=== PATIENT | female | born 1970 | race Caucasian/White ===

== ENCOUNTER 2024-06-18 11:43 | Emergency (ER) | payer MEDICAID ==
[~2024-06-18] VITALS: Ht 180.3 cm; Wt 65.5 kg
[2024-06-18 12:26] LABS: BILIRUBIN,URINE NEGATIVE (Neg); CLARITY,URINE CLEAR (Clear); COLOR,URINE YELLOW (Yellow); GLUCOSE, URINE NEGATIVE (Neg); KETONES,URINE NEGATIVE (Neg); LEUKOCYTE ESTERASE ,URINE NEGATIVE (Neg); NITRITES, URINE NEGATIVE (Neg); OCCULT BLOOD,URINE TRACE-INTACT (Neg); PROTEIN,URINE NEGATIVE (Neg); UROBILINOGEN,URINE 0.2 E.U/dL (0.2-1.0)
[2024-06-18 12:31] LABS: URINE HCG NEGATIVE (NEG)
[2024-06-18 12:42] LABS: UA COLLECTION TYPE CLN CATCH MIDSTREAM
[2024-06-18 12:44] LABS: BACTERIA,URINE NONE SEEN /HPF (Neg); SQUAMOUS EPITHELIAL CELL,UR FEW /LPF (FEW); WBC,URINE 0-4 /HPF (0-4)
[2024-06-18 13:40] LABS: BASOPHILS # (AUTO) 0.1 X10'3 (0-0.2); BASOPHILS % (AUTO) 1.1 % (0-1); EOSINOPHILS # (AUTO) 0.1 X10'3 (0-0.9); EOSINOPHILS % (AUTO) 2.5 % (0-6); HEMATOCRIT 40.1 % (35.0-45.0); HEMOGLOBIN 13.4 g/dl (12.0-16.0); LYMPHOCYTES # (AUTO) 1.3 X10'3 (1.1-4.8); LYMPHOCYTES % (AUTO) 22.6 % (21-51); MEAN CORPUSCULAR HEMOGLOBIN 29.8 PG (27.0-31.0); MEAN CORPUSCULAR HGB CONC 33.4 g/dL (33.0-36.5); MEAN PLATELET VOLUME 10.5 FL (7.4-10.4); MONOCYTES # (AUTO) 0.5 X10'3 (0-0.9); MONOCYTES % (AUTO) 8.9 % (2-12); NEUTROPHILS # (AUTO) 3.8 X10'3 (1.8-7.7); NEUTROPHILS % (AUTO) 64.9 % (42-75); PLATELET COUNT 236 X10'3 (140-440); RED BLOOD COUNT 4.51 X10'6 (4.20-5.60); WHITE BLOOD COUNT 5.8 X10'3 (4.5-11.0)
[2024-06-18 13:46] LABS: ALANINE AMINOTRANSFERASE 20 U/L (12-78); ALBUMIN 3.2 G/DL (3.4-5.0); ALKALINE PHOSPHATASE 59 IU/L (46-116); ANION GAP 4 (8-16); ASPARTATE AMINO TRANSFERASE 18 U/L (10-37); BILIRUBIN,TOTAL 0.5 MG/DL (0.1-1.0); BLOOD UREA NITROGEN 18 MG/DL (7-18); BUN/CREATININE RATIO 20.2 (10.0-20.0); CALCIUM 8.1 MG/DL (8.5-10.1); CHLORIDE 104 MMOL/L (99-107); CREATININE 0.89 MG/DL (0.40-0.90); GLUCOSE 145 MG/DL (70-104); LIPASE 35 U/L (16-77); POTASSIUM 3.6 MMOL/L (3.5-5.1); SODIUM 139 MMOL/L (135-145); TOTAL CARBON DIOXIDE 30.6 MMOL/L (24-32); TOTAL PROTEIN 6.5 G/DL (6.4-8.2); eCRCL 75 ML/MIN; eGFR 66 ML/MIN
[2024-06-18 14:20] VITALS: BP 110/61; PULSE 68; RESP 16; TEMP 97.9; O2SAT 97
== END 2024-06-18 14:25 | disposition home or self-care (01) ==
LOC: ER 11:44
DX: R19.7 Diarrhea, unspecified (principal)
CPT/HCPCS: 80053; 81001; 81025; 83690; 85025; 99283

== ENCOUNTER 2024-07-16 10:50 | Emergency (ER) | payer MEDICAID ==
[~2024-07-16] VITALS: Ht 180.3 cm; Wt 67.0 kg
[2024-07-16] MEDS ORDERED: AMOX500C2 PO (11:18)
[2024-07-16] MEDS ORDERED: CIPR10DR RIGHT EAR (11:18)
[2024-07-16 11:54] VITALS: BP 130/83; PULSE 76; RESP 16; TEMP 99; O2SAT 98
== END 2024-07-16 11:56 | disposition home or self-care (01) ==
LOC: ER 10:51
DX: H60.93 Unspecified otitis externa, bilateral (principal); Z88.8 Allergy status to other drugs, medicaments and biological substances; Z79.2 Long term (current) use of antibiotics
CPT/HCPCS: 99283

== ENCOUNTER 2024-07-22 07:54 | Emergency (ER) | payer MEDICAID ==
[~2024-07-22] VITALS: Ht 180.3 cm; Wt 67.5 kg
[~2024-07-22 07:54] MED LIST: AMOX500C2 PO; CIPR10DR RIGHT EAR
[2024-07-22 07:56] VITALS: BP 123/76; PULSE 74; RESP 16; TEMP 98.4; O2SAT 99
[2024-07-22] MEDS ORDERED: SODI45SP5 BOTHNARES (09:15)
[2024-07-22] MEDS ORDERED: FLUT16SP2 BOTHNARES (09:15)
[2024-07-22] MEDS ORDERED: CEFD300C3 PO (09:15)
[2024-07-22] MEDS ORDERED: IBUP-1985 PO (09:15)
== END 2024-07-22 09:32 | disposition home or self-care (01) ==
LOC: ER 07:55
DX: M25.561 Pain in right knee (principal); H66.91 Otitis media, unspecified, right ear; Z88.1 Allergy status to other antibiotic agents; Z88.6 Allergy status to analgesic agent
CPT/HCPCS: 99283; A6449

== ENCOUNTER 2024-08-09 10:38 | Emergency (ER) | payer MEDICAID ==
[~2024-08-09] VITALS: Ht 180.3 cm; Wt 68.5 kg
[~2024-08-09 10:38] MED LIST changes: -AMOX500C2 PO; -CIPR10DR RIGHT EAR; +FLUT16SP2 BOTHNARES; +IBUP-1985 PO; +SODI45SP5 BOTHNARES
[2024-08-09 15:05] LABS: BILIRUBIN,URINE NEGATIVE (Neg); CLARITY,URINE CLEAR (Clear); COLOR,URINE YELLOW (Yellow); GLUCOSE, URINE NEGATIVE (Neg); KETONES,URINE NEGATIVE (Neg); LEUKOCYTE ESTERASE ,URINE NEGATIVE (Neg); NITRITES, URINE NEGATIVE (Neg); OCCULT BLOOD,URINE TRACE-INTACT (Neg); PROTEIN,URINE NEGATIVE (Neg); UROBILINOGEN,URINE 0.2 E.U/dL (0.2-1.0)
[2024-08-09 15:10] LABS: UA COLLECTION TYPE CLN CATCH MIDSTREAM
[2024-08-09 15:11] LABS: BACTERIA,URINE NONE SEEN /HPF (Neg); RBC,URINE 0-2 /HPF (0-2); SQUAMOUS EPITHELIAL CELL,UR FEW /LPF (FEW); WBC,URINE 0-4 /HPF (0-4)
[2024-08-09 15:18] LABS: BASOPHILS # (AUTO) 0.1 X10'3 (0-0.2); EOSINOPHILS # (AUTO) 0.1 X10'3 (0-0.9); EOSINOPHILS % (AUTO) 2.3 % (0-6); HEMATOCRIT 39.3 % (35.0-45.0); HEMOGLOBIN 13.4 g/dl (12.0-16.0); LYMPHOCYTES # (AUTO) 1.6 X10'3 (1.1-4.8); LYMPHOCYTES % (AUTO) 24.9 % (21-51); MEAN CORPUSCULAR HEMOGLOBIN 29.7 PG (27.0-31.0); MEAN CORPUSCULAR VOLUME 87.3 FL (78-98); MONOCYTES # (AUTO) 0.6 X10'3 (0-0.9); MONOCYTES % (AUTO) 9.4 % (2-12); NEUTROPHILS % (AUTO) 62.4 % (42-75); PLATELET COUNT 248 X10'3 (140-440); RED CELL DISTRIBUTION WIDTH 13.8 % (11.5-14.5); WHITE BLOOD COUNT 6.4 X10'3 (4.5-11.0)
[2024-08-09 15:25] LABS: ALBUMIN 3.6 G/DL (3.4-5.0); ANION GAP 8 (8-16); BLOOD UREA NITROGEN 17 MG/DL (7-18); CALCIUM 8.4 MG/DL (8.5-10.1); CHLORIDE 104 MMOL/L (99-107); CREATININE 0.85 MG/DL (0.40-0.90); GLUCOSE 92 MG/DL (70-104); POTASSIUM 3.8 MMOL/L (3.5-5.1); SODIUM 140 MMOL/L (135-145); TOTAL CARBON DIOXIDE 28.2 MMOL/L (24-32); eCRCL 81 ML/MIN; eGFR 69 ML/MIN
[2024-08-09] MEDS ORDERED: ACET15SO14 RIGHT EAR (17:30)
[2024-08-09] MEDS ORDERED: ACET15SO14 (17:30)
[2024-08-09] MEDS ORDERED: PHEN-716 PO (17:30)
[2024-08-09] MEDS ORDERED: FOSF3PAC4 PO (17:30)
[2024-08-09 17:40] VITALS: BP 116/66; PULSE 69; RESP 16; TEMP 98; O2SAT 98
== END 2024-08-09 17:41 | disposition home or self-care (01) ==
LOC: ER 10:39
DX: N32.89 Other specified disorders of bladder (principal); Z88.1 Allergy status to other antibiotic agents; Z88.8 Allergy status to other drugs, medicaments and biological substances; Z79.899 Other long term (current) drug therapy
CPT/HCPCS: 36415; 80048; 81001; 85025; 99285

== ENCOUNTER 2024-08-26 11:10 | Emergency (ER) | payer MEDICAID ==
[~2024-08-26] VITALS: Ht 180.3 cm; Wt 59.1 kg
[~2024-08-26 11:10] MED LIST changes: +ACET15SO14; +ACET15SO14 RIGHT EAR; +FOSF3PAC4 PO; +PHEN-716 PO
[2024-08-26 11:43] VITALS: BP 142/92; PULSE 81; RESP 16; TEMP 97; O2SAT 98
[2024-08-26] MEDS ORDERED: LORA10TA7 PO (13:26)
[2024-08-26] MEDS ORDERED: FLUO-12 PO (13:26)
== END 2024-08-26 13:32 | disposition home or self-care (01) ==
LOC: ER 11:10
DX: F32.A Depression, unspecified (principal); H92.03 Otalgia, bilateral; Z88.8 Allergy status to other drugs, medicaments and biological substances
CPT/HCPCS: 99283

== ENCOUNTER → 2024-10-14 | Emergency (ER) | payer MEDICAID ==
[~2024-10-14] VITALS: Ht 180.3 cm; Wt 69.5 kg
[~2024-10-14] MED LIST changes: +FLUO-12 PO; +LORA10TA7 PO; +NIRM1TAB9 PO
[2024-10-14 07:56] VITALS: BP 120/79; PULSE 88; RESP 18; O2SAT 96
[2024-10-14 09:52] VITALS: TEMP 98.9
== END | disposition home or self-care (01) ==
LOC: ER 07:50
DX: U07.1 COVID-19 (principal); G43.909 Migraine, unspecified, not intractable, without status migrainosus; Z88.1 Allergy status to other antibiotic agents; Z79.899 Other long term (current) drug therapy
CPT/HCPCS: 36415; 87502; 87503; 87811; 99283